=== PATIENT | male | born 1940 | race Caucasian/White ===

== ENCOUNTER 2017-09-24 12:30 | Outpatient (RCR) | payer MEDICARE, BC ==
[2017-09-10 13:00] VITALS: BP 143/98; PULSE 67; TEMP 98.2
[2017-09-17 12:48] VITALS: BP 149/80; PULSE 62; TEMP 98.2
[~2017-09-24] VITALS: Ht 188 cm; Wt 69.0 kg
[~2017-09-24 12:30] MED LIST: ASPIRIN 81M81 MG/TA2 PO; ATIVAN 0.50.5 MG/TAB PO; CALCIUM 600/VIT1 CA1 PO; CIPRO 500MG TA500 MG PO; COLACE 100100 MG/CAP PO; DITROPAN XL15 MG PO; FLOMAX 0.40.4 MG/CAP PO; LEVOXYL0.088 MG PO; LOPRESSOR 550 MG/TAB PO; MACROBID 1100 MG/CAP PO; MAG-OX 400400 MG/TAB PO; MUCINEX 60600 MG/TA1 PO; NATURAL IRON65 MG PO; OMEGA-3 1000 MG1 CAP PO; PHARMASSURE MA500 MG PO; PHARMASSURE ZIN50 MG PO; PROBIOTIC-SUNMARK PO; SYNTHROID0.112 MG/T PO; SYSTANE EYE OU; TAMBOCOR 1100 MG/TAB PO; THE MEDICINE S200 M2 PO; TOPROL XL 50MG50 MG PO; VITAMIN C500 MG PO; VITAMIN D1000 IU PO; VITAMIND3 5000 PO; ZYRTEC 10MG10 MG PO
[2017-09-24 13:59] VITALS: BP 123/71; PULSE 60; TEMP 98.3
== END 2017-09-24 16:14 | disposition home or self-care (01) ==
LOC: EUO 12:30
DX: C67.9 Malignant neoplasm of bladder, unspecified (principal); Z79.899 Other long term (current) drug therapy
CPT/HCPCS: J9280